=== PATIENT | male | born 1995 | race Caucasian/White ===

== ENCOUNTER 2025-02-01 01:35 | Emergency (ER) | payer BC ==
[~2025-02-01] VITALS: Ht 182.8 cm; Wt 113.4 kg
[~2025-02-01 01:35] MED LIST: HYDROCODONE BIT1 T11 PO; NAPROSYN500 MG PO
[2025-02-01 02:18] LABS: BILIRUBIN Negative (Negative); BLOOD 3+ (Negative); CLARITY Clear (Clear); COLOR Yellow (Yellow); KETONE Trace (Negative); LEUKO ESTERASE Negative (Negative); NITRITE Negative (Negative); PH 5.5 (4.5-8.0); SPECIFIC GRAVITY >= 1.030 (1.001-1.030); UROBILINOGEN 1.0 E.U./dl (0.0-1.0)
[2025-02-01] MEDS ORDERED: Ondansetron Hydrochloride 4 MG TAB SL ONE (02:25)
[2025-02-01 02:28] LABS: BACTERIA 1+; CALCIUM OXALATE CRYSTALS Trace; RBC 41-50 rbc/hpf (0-2); WBC 0-2 wbc/hpf (0-5)
[2025-02-01 02:29] LABS: YEAST TRACE
[2025-02-01] MEDS ORDERED: Ondansetron4 MG PO (03:11)
[2025-02-01] MEDS ORDERED: FLOMAX0.4 MG PO (03:11)
[2025-02-01] MEDS ORDERED: HYDROCODONE-AC1 EAC1 PO (03:11)
== END 2025-02-01 03:22 | disposition home or self-care (01) ==
LOC: ED 01:35
PROVIDERS: Internal Medicine
DX: N20.9 Urinary calculus, unspecified (principal); N13.30 Unspecified hydronephrosis; R11.0 Nausea; Z88.0 Allergy status to penicillin